=== PATIENT | male | born 1965 | race African-American/Black ===

== ENCOUNTER 2018-01-16 19:10 | Emergency (ER) | END 2018-01-17 00:13 | disposition home or self-care (01) ==

== ENCOUNTER 2018-03-13 08:57 | Emergency (ER) | END 2018-03-13 13:29 | disposition home or self-care (01) ==

== ENCOUNTER 2019-02-28 21:37 | Emergency (ER) | payer OTHER ==
[~2019-02-28] VITALS: Ht 182.9 cm; Wt 147.7 kg
[~2019-02-28 21:37] MED LIST: AMLO-147 PO; BENA40TA56 PO; DIAZ10TA4 PO; ERGO500013 PO; HYDR-3980 PO; HYG50 PO; LORA10TA3 PO; NALO4SPR NS
[2019-02-28 21:39] VITALS: Ht 182.9 cm; Wt 147.7 kg
[2019-02-28] MEDS ORDERED: SOD CHLORIDE 0.9% 1,000 ML IV STA (22:17)
[2019-02-28] MEDS ORDERED: morphine 4 MG/ML VIAL IV STA (22:17)
[2019-02-28] MEDS: ONDANSETRON 4 MG INJ IV STA ×2 (22:29→22:32)
[2019-02-28] MEDS ORDERED: ONDANSETRON 4 MG INJ IV STA (22:59)
[2019-02-28] MEDS ORDERED: HYDROmorphONE 1 MG/ML SYG IV STA (22:59)
[2019-02-28] MEDS ORDERED: IOHEXOL 300MG/ML 150 ML BTL ONE (23:30)
[2019-02-28] MEDS ORDERED: SOD CHLORIDE 0.9% 100 ML ONE (23:30)
--- NOTE | 2019-03-01 00:13 | ERD ---
ER Documentation Chief Complaint Chief Complaint GASTRIC SLEEVE AND HERNIA REPAIR [id number]; ABD PAIN [id number] HPI This is a 53-year-old male that presents to the emergency department with abdominal pain. The patient is postop day 20 after undergoing a surgical procedure with gastric sleeve and hernia repair. This is performed at [facility]. The patient indicates for the past week he has been having worsening abdominal pain which she states is to the right of his abdominal surgical scar. He states the pain is 8 out of 10 in intensity. There is no alleviating or exacerbating factors. He has been able to tolerate oral intake. He has had no diarrhea or emesis. No fevers or shaking or chills. He denies any shortness of breath at rest or exertion. He states the pain is a sharp shooting pain. ROS All systems reviewed and are negative except as per history of present illness. Medications Home Meds Active Scripts Hydrocodone/Acetaminophen ([place] 10-325 Tablet) 1 Each Tablet, 1 TAB PO Q6H PRN for PAIN, #7 TAB Prov:MEGAN CHAVES PA-C 03/13/18 Reported Medications Chlorthalidone* (Chlorthalidone*) 50 Mg Tablet, 50 MG PO DAILY, TAB 01/16/18 Amlodipine Besylate* (Amlodipine Besylate*) 10 Mg Tablet, 10 MG PO DAILY, #30 TAB 01/16/18 Benazepril Hcl* (Benazepril Hcl*) 40 Mg Tablet, 40 MG PO DAILY, #30 TAB 01/16/18 Loratadine* (Loratadine*) 10 Mg Tablet, 10 MG PO DAILY, #30 TAB 01/16/18 Ergocalciferol (Vitamin D2) (VITAMIN D2) 50,000 Unit Capsule, 31577 UNIT PO Q FRI, CAP 01/16/18 Diazepam* (Diazepam*) 10 Mg Tablet, 10 MG PO QHS PRN for NEEDED, TAB 01/16/18 Allergies Allergies: Coded Allergies: No Known Allergy (Unverified , 01/16/18) PMhx/Soc History of Surgery: Yes (bowl resection w/ colostomy & reversal, knee x 3) Anesthesia Reaction: No Hx Cardiac Disorders: Yes (htn) Hx Miscellaneous Medical Probl: Yes (sleep apnea ) Hx Alcohol Use: No Hx Substance Use: No Hx Tobacco Use: No Smoking Status: Never smoker Physical Exam Vitals Vital Signs Date Temp Pulse Resp B/P (MAP) Pulse Ox O2 O2 Flow FiO2 Time Delivery Rate 02/28/19 97.9 82 19 141/81 99 Room Air 22:26 (101) 02/28/19 97.9 94 19 165/80 99 21:39 (108) Physical Exam Constitutional:Well-developed. Well-nourished. HEENT:Normocephalic. Atraumatic.Pupils were equal round reactive to light. Moist mucous membranes.No tonsillar exudates. Neck: No nuchal rigidity. No lymphadenopathy. No posterior cervical spine tenderness or step-offs. Respiratory: Not using accessory muscles of respiration.Lungs were clear to auscultation bilaterally. No rhonchi. No rales. No wheezing. Cardiovascular: Regular rate regular rhythm.No murmurs. No rubs were appreciated.S1, S2 normal. Distal pulses are palpable 2+ bilaterally. GI: Abdomen was obese so exam is limited due to body habitus. Surgical scar was clean dry and intact extending from the sternum to the umbilicus vertical incision. Mild tenderness to the right of the distal surgical scar. Non Distended. No pulsatile abdominal masses or bruits. No rebound. No guarding. Bowel sounds were present and normal. Muscle skeletal: Full range of motion of both the upper and lower extremities bilaterally.Normal muscle tone.No assymetrical calf tenderness or swelling. Skin: No petechia, no purpura. No lesions on the palms or the soles of the feet. No maculopapular rash. NEURO: Patient was alert, awake, orientated x3.No facial droop. Gait observed and normal with no ataxia.Speech had regular rate and rhythm. No focal ne urological deficits. Result Diagram: 02/28/19222402/28/192224 Results 24 hrs Laboratory Tests Test 02/28/19 22:25 White Blood Count 11.2 10^3/ul Red Blood Count 4.58 10^6/ul Hemoglobin 12.1 g/dl Hematocrit 38.9 % Mean Corpuscular Volume 84.9 fl Mean Corpuscular Hemoglobin 26.4 pg Mean Corpuscular Hemoglobin Concent 31.1 g/dl Red Cell Distribution Width 14.1 % Platelet Count 259 10^3/UL Mean Platelet Volume 10.3 fl Immature Granulocytes % 0.300 % Neutrophils % 65.0 % Lymphocytes % 24.6 % Monocytes % 8.2 % Eosinophils % 1.5 % Basophils % 0.4 % Nucleated Red Blood Cells % 0.0 /100WBC Immature Granulocytes # 0.030 10^3/ul Neutrophils # 7.2 10^3/ul Lymphocytes # 2.8 10^3/ul Monocytes # 0.9 10^3/ul Eosinophils # 0.2 10^3/ul Basophils # 0.1 10^3/ul Nucleated Red Blood Cells # 0.0 10^3/ul Prothrombin Time 12.9 Sec Prothrombin Time Ratio 1.0 INR International Normalized Ratio 0.96 Activated Partial Thromboplast Time 33.3 Sec Sodium Level 141 mmol/L Potassium Level 4.3 mmol/L Chloride Level 105 mmol/L Carbon Dioxide Level 28 mmol/L Anion Gap 8 Blood Urea Nitrogen 17 mg/dl Creatinine 1.11 mg/dl Est Glomerular Filtrat Rate mL/min > 60 mL/min Glucose Level 93 mg/dl Calcium Level 9.7 mg/dl Total Bilirubin 0.3 mg/dl Direct Bilirubin 0.00 mg/dl Indirect Bilirubin 0.3 mg/dl Aspartate Amino Transf (AST/SGOT) 18 IU/L Alanine Aminotransferase (ALT/SGPT) 27 IU/L Alkaline Phosphatase 61 IU/L Total Protein 8.2 g/dl Albumin 4.4 g/dl Globulin 3.80 g/dl Albumin/Globulin Ratio 1.15 Current Medications Medications Dose Sig/Derek Start Time Status Last (Trade) Ordered Route PRN Stop Time Admin Dose Reason Admin Sodium 1,000 ml @ Q1H STAT 02/28/19 DC 02/28/19 Chloride 1,000 mls/hr IV 22:17 22:29 02/28/19 23:16 Morphine 4 mg ONCE STAT 02/28/19 DC 02/28/19 Sulfate IV 22:17 22:29 (morphine) 02/28/19 22:19 Ondansetron 4 mg ONCE STAT 02/28/19 DC HCl (Zofran IV 22:17 Inj) 02/28/19 22:19 1 mg ONCE STAT 02/28/19 DC 02/28/19 Hydromorphone IV 22:59 23:05 HCl 02/28/19 23:00 (Dilaudid) Ondansetron 4 mg ONCE STAT 02/28/19 DC HCl (Zofran IV 22:59 Inj) 02/28/19 23:00 Sodium 100 ml @ ud STK-MED 02/28/19 DC 02/28/19 Chloride ONCE .ROUTE 23:30 23:54 02/28/19 23:31 Iohexol 150 ml STK-MED 02/28/19 DC 02/28/19 (Omnipaque ONCE .ROUTE 23:30 23:53 300mg/ ml) 02/28/19 23:31 Procedures/MDM This is a 53-year-old male that presented to the emergency department postoperative abdominal pain. Patient was immediately placed in epic monitor. The patient had no ectopy. He was given intravenous morphine with no improvement of his pain. Therefore he was given IV Dilaudid and this did improve his symptoms. He had no leukocytosis. There is no severe electrolyte abnormalities. I obtained a CT scan of the abdomen that was reviewed by myself and there is no evidence of postoperative abscess or small bowel obstruction. The patient will follow-up with his surgeon for further evaluation. The patient was discharged home in fair condition. They were instructed to return to the emergency department at any time if there was any worsening of their condition. The patient stated they would follow up with their PCP in the next 24-48 hours to initiate a suitable medication regimen under the care of their PCP as well as to allow their PCP to monitor any drug reactions. The patient was discharged home with prescriptions after they gave informed consent to the new medication. They were also fully informed by myself on the adverse effects and adverse drug interactions in order to provide adequate safeguards to prevent possible adverse reactions to medications. Departure Diagnosis: Primary Impression: Postoperative abdominal pain Condition: IRENE Bernard MD Mar 01, 2019 00:13
[2019-03-01] MEDS ORDERED: HYDROCODONE/APAP (10/325) TAB PO ONE (01:00)
--- NOTE | 2019-03-01 01:05 | QN ---
Documentation Comment IMPRESSION: 1. There is edema and / or fibrosis in the subcutaneous fat in the right periumbilical area. Consider trauma , versus postop change versus infarction. The involved area measures approximate 7 cm in diameter. 2. Postop changes of the stomach, consistent with gastric sleeve procedure. 3. Mild diverticulosis of the colon. No findings of acute diverticulitis. 4. No acute abnormality demonstrated in the abdomen and pelvis. Patient was endorsed to me pending CT imaging. The patient's pain is much improved. However he is still having discomfort. He states that he has had pain ever since his surgery approximately 20 days ago. He has since seen his surgeon for the similar pain and was told that he has a hernia that will need to be addressed when he loses weight. The patient CT findings suggest likely subacute process. I do not believe the patient has bowel ischemia given pain is improved, no anion gap acidosis. Additionally, the patient has not had any exacerbation of pain for the past 20 days and pain is no different in this timeframe. At this point I feel the patient can be safely discharged home. He was advised to follow-up with his surgeon as soon as possible within the next several days. Return precautions were discussed and understood. Patient is safe for discharge. NARCOTIC MEDICATION: The patient has been prescribed a narcotic medication during this encounter. The patient has been warned about the use of narcotics. The patient should not drive or operate heavy machinery while taking this medication. The patient was also warned about the addictive properties of narcotic medications. Narcan prescription WAS provided given one of the following criteria were met: 1. More than 5 tablets of [place] 10 mg or 10 tablets of [place] 5 mg were prescribed. 2. Concomitant opiate and benzodiazepine prescriptions were provided. 3. There is evidence of prior history of opiate abuse or overdose. JENNA PAREKH MD Mar 01, 2019 01:05
[2019-03-01 01:14] VITALS: BP 138/82; PULSE 80; RESP 20
== END 2019-03-01 01:14 | disposition home or self-care (01) ==
LOC: E/R 21:37
DX: G89.18 Other acute postprocedural pain (principal); I10 Essential (primary) hypertension
CPT/HCPCS: 74177; 80053; 85025; 85610; 85730; 96374; 96375; J1170; J2270; J7030; Q9967; Z7502; Z7610; J2405